=== PATIENT | male | born 1955 | race Caucasian/White ===

== ENCOUNTER 2024-03-25 20:05 | Inpatient (IN) | payer MEDICARE, OTHER ==
[~2024-03-25 20:05] MED LIST: Iopamidol-370 76% 500 ML MDV (1 ML CHARGE) ONE
[2024-03-25] MEDS ORDERED: Morphine 4 MG/ML VIAL ONE (21:20)
[2024-03-25] MEDS ORDERED: Ondansetron PF 4 MG/2 ML Vial ONE (21:20)
[2024-03-25] MEDS ORDERED: Cefepime 2 GM VIAL ONE (21:21)
[2024-03-25] MEDS ORDERED: Sodium Chloride 0.9% 100 ML ONE (21:21)
[2024-03-25 21:23] LABS: #Basophils 0.03 10x3/uL (0.0-0.2); #Eosinphils Less than 0.03 10x3/uL (0.0-0.7); %Basophils 0.3 % (0.0-1.0); %Eosinophils 0.1 % (0.0-10.0); %Lymphocytes 9.4 % (21.0-51.0); %Monocytes 8.4 % (0.0-10.0); %Neutrophils 81.4 % (42.0-75.0); Hematocrit 42.4 % (42.0-52.0); Hemoglobin 13.9 g/dL (14.0-18.0); Mean Corpuscular HGB CONC 32.8 g/dL (32.0-36.0); Mean Corpuscular Hemoglobin 31.4 pg (27.0-31.0); Mean Corpuscular Volume 95.7 fL (78.0-98.0); Mean Platelet Volume 10.9 fL (7.4-10.4); Platelet Count 197 10x3/uL (130-400); RBC Distribution Width 14.1 % (11.5-14.5); Red Blood Cell (RBC) Count 4.43 mill/uL (4.70-6.10)
[2024-03-25 21:26] LABS: Bacteria/HPF None Seen HPF (None Seen); Bilirubin Negative (Negative); Blood, Urine Negative (Negative); CAUTI Indications for Culture Fever or rigors; Clarity Clear (Clear); Glucose, Urine (Dipstick) Normal (Negative); Ketone, Urine Trace mg/dL (Negative); Leukocyte Negative Leu/uL (Negative); Nitrite Negative (Negative); Protein, Urine (Dipstick) 20 mg/dL (Neg-Trace); RBC/HPF 0-3 HPF (0-3); Specific Gravity, Urine 1.029 (1.002-1.036); Squamous Epithelial None Seen HPF (0-3); Urobilinogen Normal mg/dL (Less than 2); WBC/HPF None Seen HPF (0-3); pH, Urine 5.5 (5.0-9.0)
[2024-03-25 21:28] LABS: Urine Culture Reflex No No
[2024-03-25 21:40] LABS: ALT (SGPT) 30 U/L (8-55); AST (SGOT) 29 U/L (5-34); Albumin 3.7 g/dL (3.4-4.8); Alkaline Phosphatase 63 U/L (40-110); Anion Gap 16 mmol/L (10-20); BUN (Urea Nitrogen) 12 mg/dL (8.4-25.7); Bilirubin, Total 0.6 mg/dL (0.2-1.2); Calc. Creatinine Clearance 0 mL/min (70-130); Calcium 9.3 mg/dL (7.8-10.44); Carbon Dioxide 22 mmol/L (23-31); Chloride 105 mmol/L (98-107); Estimated GFR 92; Globulin 3.7 g/dL (2.4-3.5); Glucose 131 mg/dL (83-110); Lipase 22 U/L (8-78); Magnesium 1.9 mg/dL (1.6-2.6); Potassium 3.7 mmol/L (3.5-5.1); Protein, Total 7.4 g/dL (5.8-8.1); Sodium 139 mmol/L (136-145)
[2024-03-25 21:43] LABS: Troponin I Less than 0.010 ng/mL (< 0.028)
[2024-03-25] MEDS ORDERED: Vancomycin 1 GM/200 ML (FROZEN) BAG ONE ×2 (22:00→22:35)
[2024-03-25 22:01] LABS: Influenza A by NAA Not Detected (NotDetected); Influenza B by NAA Not Detected (NotDetected); SARS-CoV-2 NAA Rapid Test Not Detected (NotDetected)
[2024-03-25] MEDS ORDERED: Furosemide 40 MG (4 mL) VIAL ONE (22:50)
[2024-03-25] MEDS ORDERED: dilTIAZem 25 MG/5 ML VIAL ONE (23:27)
[2024-03-25] MEDS ORDERED: Ondansetron PF 4 MG/2 ML Vial IVP PRN (23:30)
[2024-03-25] MEDS ORDERED: Ondansetron ODT 4 MG TAB SL PRN (23:30)
[2024-03-25] MEDS ORDERED: dilTIAZem 125 MG in Sodium Chloride 0.9% 100 ML IVPB SCH (23:45)
[2024-03-26 00:12] LABS: Lactic Acid 1.5 mmol/L (0.5-2.2)
[2024-03-26] MEDS ORDERED: Glucagon 1 MG/ML KIT IM PRN (00:49)
[2024-03-26] MEDS ORDERED: Dextrose 5% in Water 1,000 ML IV PRN (00:49)
[2024-03-26] MEDS ORDERED: Dextrose 50% Abboject 50 ML SYRINGE SLOW IVP PRN (00:49)
[2024-03-26] MEDS ORDERED: HumaLOG 300 UNITS/3 ML VIAL SC PRN ×2 (00:49)
[2024-03-26 01:46] VITALS: BMI 48.1
[2024-03-26 01:48] LABS: Troponin I 0.031 ng/mL (< 0.028)
[2024-03-26] MEDS: Vancomycin (BATCH) 2 GM in Premix 1 BAG IVPB SCH (01:49)
[2024-03-26 01:58] LABS: Magnesium 1.7 mg/dL (1.6-2.6); Phosphorus 4.4 mg/dL (2.3-4.7)
[2024-03-26 02:39] LABS: Actual Bicarbonate (HCO3a) 24.8 mEq/L (22-28); Base Excess (BEa) -0.7 mEq/L (-2.0 to +3.0); Calcium, Ionized (arterial) 1.13 mmol/L (1.12-1.30); Carboxyhemoglobin (COHb) 0.7 gm% (0.0-3.0); Hematocrit-ABG 41 % (42.0-52.0); Hemoglobin (Hb) 13.9 g/dL (14.0-18.0); O2 Tension (PaO2), arterial 66.4 mmHg (> 70.0); Potassium - ABG Lab 3.35 mmol/L (3.70-5.30); pH, Arterial 7.369 (7.35-7.45)
[2024-03-26 02:41] LABS: Puncture Site LRA
[2024-03-26 04:12] LABS: #Basophils Less than 0.03 10x3/uL (0.0-0.2); #Eosinphils Less than 0.03 10x3/uL (0.0-0.7); %Basophils 0.2 % (0.0-1.0); %Lymphocytes 8.1 % (21.0-51.0); %Monocytes 8.9 % (0.0-10.0); %Neutrophils 82.2 % (42.0-75.0); Hematocrit 41.4 % (42.0-52.0); Hemoglobin 13.2 g/dL (14.0-18.0); Mean Corpuscular HGB CONC 31.9 g/dL (32.0-36.0); Mean Corpuscular Hemoglobin 31.4 pg (27.0-31.0); Mean Corpuscular Volume 98.3 fL (78.0-98.0); Mean Platelet Volume 10.7 fL (7.4-10.4); Platelet Count 168 10x3/uL (130-400); RBC Distribution Width 14.2 % (11.5-14.5); Red Blood Cell (RBC) Count 4.21 mill/uL (4.70-6.10)
[2024-03-26 04:20] LABS: Vancomycin, Random 13.9 ug/mL (See Comment)
[2024-03-26 04:21] LABS: Anion Gap 16 mmol/L (10-20); BUN (Urea Nitrogen) 12 mg/dL (8.4-25.7); Calc. Creatinine Clearance 179 mL/min (70-130); Calcium 8.6 mg/dL (7.8-10.44); Carbon Dioxide 21 mmol/L (23-31); Cardiac Risk 2.6 (Less than 4.5); Chloride 104 mmol/L (98-107); Cholesterol 127 mg/dl (< 200 Desired); Estimated GFR 93; Glucose 156 mg/dL (83-110); HDL Cholesterol 48 mg/dL (>60 Neg Risk); LDL Cholesterol, Calculated 66 mg/dL; Potassium 3.8 mmol/L (3.5-5.1); Sodium 137 mmol/L (136-145); Triglycerides 66 mg/dL (Less than 150)
[2024-03-26] MEDS: Magnesium 2 GM/50 ML(in water) 2 GM in Premix 1 BAG IVPB SCH (04:33)
[2024-03-26 04:43] LABS: Free T4 (Free Thyroxine) 0.9 ng/dL (0.70-1.48)
[2024-03-26 04:50] LABS: Hemoglobin A1c 6.1 % (4.0-6.0)
[2024-03-26] MEDS ORDERED: Albuterol 200 PUFF (6.7GM INHALER) INH PRN (06:30)
[2024-03-26] MEDS: Amiodarone 200 MG TAB PO SCH (08:00)
[2024-03-26] MEDS: metFORMIN 500 MG TAB PO SCH ×2 (08:00→16:46)
[2024-03-26] MEDS: Furosemide 40 MG (4 mL) VIAL SLOW IVP SCH (08:00)
[2024-03-26] MEDS: Apixaban 5 MG TAB PO SCH (08:00)
[2024-03-26] MEDS: Pantoprazole DR 40 MG TAB PO SCH (08:00)
[2024-03-26] MEDS: Cefepime 2 GM in Sodium Chloride 0.9% 100 ML IVPB SCH (08:01)
[2024-03-26] MEDS: Fluticasone Propionate Nasal Spray 16 gm Bottle NASAL SCH (08:01)
[2024-03-26] MEDS ORDERED: Enoxaparin 40 MG (0.4 mL) SYRINGE SC SCH (09:00)
[2024-03-26] MEDS ORDERED: Vancomycin 2 GM in Sodium Chloride 0.9% 500 ML IVPB SCH (09:00)
[2024-03-26] MEDS ORDERED: Famotidine 20 MG TAB PO SCH (09:00)
[2024-03-26] MEDS: Vancomycin (BATCH) 1.5 GM in Premix 1 BAG IVPB SCH (09:39)
[2024-03-26] MEDS: Acetaminophen 325 MG TAB PO PRN (14:38)
[2024-03-26] MEDS: Atorvastatin Calcium 40 MG TAB PO SCH (20:45)
[2024-03-27 05:42] LABS: #Basophils Less than 0.03 10x3/uL (0.0-0.2); %Basophils 0.2 % (0.0-1.0); %Eosinophils 0.3 % (0.0-10.0); %Lymphocytes 13.4 % (21.0-51.0); %Monocytes 14.8 % (0.0-10.0); %Neutrophils 70.9 % (42.0-75.0); Hematocrit 39.2 % (42.0-52.0); Hemoglobin 12.7 g/dL (14.0-18.0); Mean Corpuscular HGB CONC 32.4 g/dL (32.0-36.0); Mean Corpuscular Hemoglobin 31.7 pg (27.0-31.0); Mean Corpuscular Volume 97.8 fL (78.0-98.0); Mean Platelet Volume 10.7 fL (7.4-10.4); Platelet Count 169 10x3/uL (130-400); RBC Distribution Width 14.3 % (11.5-14.5); Red Blood Cell (RBC) Count 4.01 mill/uL (4.70-6.10)
[2024-03-27 06:01] LABS: Anion Gap 14 mmol/L (10-20); BUN (Urea Nitrogen) 13 mg/dL (8.4-25.7); Calc. Creatinine Clearance 209 mL/min (70-130); Calcium 8.6 mg/dL (7.8-10.44); Carbon Dioxide 25 mmol/L (23-31); Chloride 103 mmol/L (98-107); Estimated GFR 97; Glucose 122 mg/dL (83-110); Potassium 3.5 mmol/L (3.5-5.1); Sodium 138 mmol/L (136-145)
[2024-03-27] MEDS: Amiodarone 200 MG TAB PO SCH (08:21)
[2024-03-27] MEDS: Furosemide 40 MG TAB PO SCH (08:31)
[2024-03-27] MEDS: Potassium Chloride 20 MEQ TAB PO SCH (11:09)
[2024-03-27 17:50] VITALS: BP 125/68
[2024-03-28 06:16] LABS: #Basophils Less than 0.03 10x3/uL (0.0-0.2); %Basophils 0.3 % (0.0-1.0); %Eosinophils 3.6 % (0.0-10.0); %Lymphocytes 28.6 % (21.0-51.0); %Monocytes 16.2 % (0.0-10.0); Hematocrit 40.9 % (42.0-52.0); Mean Corpuscular HGB CONC 31.8 g/dL (32.0-36.0); Mean Corpuscular Hemoglobin 31.1 pg (27.0-31.0); Mean Corpuscular Volume 97.8 fL (78.0-98.0); Mean Platelet Volume 10.8 fL (7.4-10.4); Platelet Count 177 10x3/uL (130-400); RBC Distribution Width 13.8 % (11.5-14.5); Red Blood Cell (RBC) Count 4.18 mill/uL (4.70-6.10)
[2024-03-28 06:26] LABS: Anion Gap 16 mmol/L (10-20); BUN (Urea Nitrogen) 11 mg/dL (8.4-25.7); Calc. Creatinine Clearance 250 mL/min (70-130); Calcium 8.7 mg/dL (7.8-10.44); Carbon Dioxide 24 mmol/L (23-31); Chloride 104 mmol/L (98-107); Estimated GFR 103; Glucose 92 mg/dL (83-110); Potassium 3.8 mmol/L (3.5-5.1); Sodium 140 mmol/L (136-145)
[2024-03-28 16:40] VITALS: TEMP 97.5
== END 2024-03-28 17:55 | disposition left against medical advice (07) | DRG 291 ==
LOC: ERS 20:05 → IMCU/EMU 23:26
PROVIDERS: ADMIT Student in an Organized Health Care Education/Training Program; ATTEND Student in an Organized Health Care Education/Training Program
PROC: 3E03329 Introduction of Other Anti-infective into Peripheral Vein, Percutaneous Approach (ICD-10-PCS; 2024-03-25)
PROC: 4A033R1 Measurement of Arterial Saturation, Peripheral, Percutaneous Approach (ICD-10-PCS; principal; 2024-03-26)
PROC: 5A09357 Assistance with Respiratory Ventilation, Less than 24 Consecutive Hours, Continuous Positive Airway Pressure (ICD-10-PCS; 2024-03-26)
DX: I11.0 Hypertensive heart disease with heart failure (principal); I50.33 Acute on chronic diastolic (congestive) heart failure; J96.01 Acute respiratory failure with hypoxia; Z68.42 Body mass index [BMI] 45.0-49.9, adult; I24.89 Other forms of acute ischemic heart disease; J06.9 Acute upper respiratory infection, unspecified; I48.91 Unspecified atrial fibrillation; E11.9 Type 2 diabetes mellitus without complications; N40.0 Benign prostatic hyperplasia without lower urinary tract symptoms; Z88.1 Allergy status to other antibiotic agents; Z88.8 Allergy status to other drugs, medicaments and biological substances; Z96.653 Presence of artificial knee joint, bilateral; M54.2 Cervicalgia; E78.00 Pure hypercholesterolemia, unspecified; G47.33 Obstructive sleep apnea (adult) (pediatric); E66.01 Morbid (severe) obesity due to excess calories
CPT/HCPCS: 36415; 36416; 36600; 70450; 71045; 71275; 72125; 74177; 80048; 80053; 80061; 80202; 81001; 82805; 83036; 83605; 83690; 83735; 83880; 84100; 84145; 84439; 84443; 84481; 84484; 85025; 87040; 87081; 87633; 93005; 93306; 94660; 96365; 96375; J0692; J1940; J2270; J2405; J3370; J3370-JW; J3475; J3490; Q9967